=== PATIENT | female | born 1930 | race Caucasian/White ===

== ENCOUNTER 2021-06-23 16:01 | Inpatient (IN) ==
[2021-06-23 16:51] LABS: Basophils % 0.3 %; Hematocrit 38.1 % (35.3-44.9); Hemoglobin 13.2 g/dL (11.5-15.4); Immature Granulocytes % 0.5 % (0-4); Lymphocytes # 0.4 K/mcL (0.6-4.6); Mean Corpuscular HGB Conc 34.6 g/dL (31.6-35.5); Mean Corpuscular Hemoglobin 32.1 pg (28.0-33.3); Mean Corpuscular Volume 92.7 fL (83.0-100.0); Mean Platelet Volume 11.2 fL (9.4-12.4); Monocytes # 0.1 K/mcL (0.0-1.3); Monocytes % 3.3 %; Neutrophils # 3.5 K/mcL (1.6-8.9); Red Blood Count 4.11 M/mcL (3.82-4.97); Red Cell Distribution Width 11.8 % (11.5-14.5); Segmented Neutrophils % 86.9 %
[2021-06-23 17:06] LABS: Alanine Aminotransferase 46 Units/L (7-52); Albumin 3.1 g/dL (3.5-5.7); Albumin/Globulin Ratio 1.1 (1.1-2.2); Alkaline Phosphatase 36 Units/L (34-104); Aspartate Amino Transferase 82 Units/L (13-39); BUN/Creatinine Ratio 22 (6-26); Bilirubin,Total 0.4 mg/dL (0.3-1.0); Blood Urea Nitrogen 18 mg/dL (8-23); Calcium 7.8 mg/dL (8.6-10.3); Carbon Dioxide 23 mEq/L (23-29); Chloride 97 mEq/L (98-107); Globulin 2.7 g/dL (2.4-3.5); Glucose 119 mg/dL (70-105); Osmolality,Calculated 273 (280-300); Potassium 3.6 mEq/L (3.5-5.1); Sodium 130 mEq/L (136-145); Total Protein 5.8 g/dL (6.4-8.9); eGFR For African Americans > 60 (> 60); eGFR For Non-African Americans > 60 (> 60)
[2021-06-23 17:13] LABS: Platelet Count 96 K/mcL (140-400)
[2021-06-23 17:14] LABS: Platelet Estimate Slight Decrease (Normal)
[2021-06-23 17:22] LABS: Thyroid Stimulating Hormone 1.022 mcIU/mL (0.340-5.600)
[2021-06-23] MEDS: 0.9 % Sodium Chloride 1,000 ML IVC SCH (18:27)
[2021-06-23] MEDS ORDERED: 0.9 % Sodium Chloride 500 ML IVC ONE (18:44)
[2021-06-23] MEDS ORDERED: *HR* Enoxaparin 40 MG/0.4 ML SYRINGE SQ ONE (19:35)
[2021-06-23] MEDS ORDERED: Ondansetron 4 MG/2 ML VIAL IVP PRN (20:38)
[2021-06-23 20:54] LABS: INR 1.3; Prothrombin Time 14.9 Seconds (9.4-12.1)
[2021-06-23 20:56] LABS: Activated Partial Thrombo Time 27.6 Seconds (26.0-36.0)
[2021-06-24 00:53] LABS: BUN/Creatinine Ratio 24 (6-26); Blood Urea Nitrogen 15 mg/dL (8-23); Calcium 7.2 mg/dL (8.6-10.3); Carbon Dioxide 22 mEq/L (23-29); Chloride 102 mEq/L (98-107); Glucose 130 mg/dL (70-105); Osmolality,Calculated 275 (280-300); Potassium 3.6 mEq/L (3.5-5.1); Sodium 131 mEq/L (136-145); eGFR For African Americans > 60 (> 60); eGFR For Non-African Americans > 60 (> 60)
[2021-06-24] MEDS: 0.9 % Sodium Chloride 1,000 ML IVC SCH (04:23)
[2021-06-24 11:18] LABS: Hematocrit 33.3 % (35.3-44.9); Hemoglobin 11.4 g/dL (11.5-15.4); Immature Granulocytes % 0.8 % (0-4); Lymphocytes # 0.3 K/mcL (0.6-4.6); Lymphocytes % 13.4 %; Mean Corpuscular HGB Conc 34.2 g/dL (31.6-35.5); Mean Corpuscular Hemoglobin 31.9 pg (28.0-33.3); Mean Corpuscular Volume 93.3 fL (83.0-100.0); Mean Platelet Volume 10.9 fL (9.4-12.4); Monocytes # 0.2 K/mcL (0.0-1.3); Monocytes % 6.3 %; Red Blood Count 3.57 M/mcL (3.82-4.97); Red Cell Distribution Width 11.9 % (11.5-14.5); Segmented Neutrophils % 79.5 %; White Blood Count 2.5 K/mcL (4.3-11.1)
[2021-06-24 11:22] LABS: Platelet Count 91 K/mcL (140-400)
[2021-06-24 11:31] LABS: Alanine Aminotransferase 38 Units/L (7-52); Albumin 2.6 g/dL (3.5-5.7); Albumin/Globulin Ratio 1.1 (1.1-2.2); Alkaline Phosphatase 31 Units/L (34-104); Aspartate Amino Transferase 56 Units/L (13-39); BUN/Creatinine Ratio 24 (6-26); Bilirubin,Total 0.4 mg/dL (0.3-1.0); Blood Urea Nitrogen 15 mg/dL (8-23); Calcium 7.2 mg/dL (8.6-10.3); Carbon Dioxide 24 mEq/L (23-29); Chloride 107 mEq/L (98-107); Globulin 2.4 g/dL (2.4-3.5); Glucose 111 mg/dL (70-105); Osmolality,Calculated 286 (280-300); Potassium 3.9 mEq/L (3.5-5.1); Sodium 137 mEq/L (136-145); eGFR For African Americans > 60 (> 60); eGFR For Non-African Americans > 60 (> 60)
[2021-06-24 12:15] LABS: Bilirubin,Urine Negative (Negative); Blood,Urine Negative (Negative); Clarity,Urine Clear (Clear); Color,Urine Yellow (Yellow); Glucose,Urine (UA) Normal (Normal); Ketones,Urine Negative (Negative); Leukocyte Esterase,Urine Negative (Negative); Nitrite,Urine Negative (Negative); Protein,Urine 30 mg/dL (Neg-Trace); Specific Gravity,Urine 1.015 (1.010-1.025); Urobilinogen,Urine Normal (Normal)
[2021-06-24 12:23] LABS: Amphetamine Screen,Urine Negative ng/mL (Cutoff=1000); Barbiturate Screen,Urine Negative ng/mL (Cutoff=200); Benzodiazepines Screen,Urine Negative ng/mL (Cutoff=200); Cannabinoid Screen,Urine Negative ng/mL (Cutoff = 50); Cocaine Screen,Urine Negative ng/mL (Cutoff= 300); Opiate Screen,Urine Negative ng/mL (Cutoff=300); Phencyclidine Screen,Urine Negative ng/mL (Cutoff=25)
[2021-06-24 12:27] LABS: WBC,Urine 0-3 per hpf (0-3)
[2021-06-24 18:12] LABS: Ferritin 589 ng/mL (10-120)
[2021-06-24] MEDS ORDERED: *HR* Enoxaparin 40 MG/0.4 ML SYRINGE SQ ONE (22:00)
[2021-06-25 07:04] LABS: Hematocrit 35.6 % (35.3-44.9); Hemoglobin 12.2 g/dL (11.5-15.4); Immature Granulocytes % 0.7 % (0-4); Lymphocytes # 0.3 K/mcL (0.6-4.6); Lymphocytes % 7.5 %; Mean Corpuscular HGB Conc 34.3 g/dL (31.6-35.5); Mean Corpuscular Volume 93.4 fL (83.0-100.0); Mean Platelet Volume 10.9 fL (9.4-12.4); Monocytes # 0.1 K/mcL (0.0-1.3); Monocytes % 1.8 %; Neutrophils # 4.1 K/mcL (1.6-8.9); Platelet Count 118 K/mcL (140-400); Red Blood Count 3.81 M/mcL (3.82-4.97); White Blood Count 4.5 K/mcL (4.3-11.1)
[2021-06-25 07:12] VITALS: TEMP 97.7
[2021-06-25 07:16] LABS: BUN/Creatinine Ratio 25 (6-26); Blood Urea Nitrogen 15 mg/dL (8-23); Calcium 7.8 mg/dL (8.6-10.3); Carbon Dioxide 24 mEq/L (23-29); Chloride 107 mEq/L (98-107); Glucose 137 mg/dL (70-105); Osmolality,Calculated 287 (280-300); Potassium 4.3 mEq/L (3.5-5.1); Sodium 137 mEq/L (136-145); eGFR For African Americans > 60 (> 60); eGFR For Non-African Americans > 60 (> 60)
[2021-06-25] MEDS ORDERED: *HR* Enoxaparin 40 MG/0.4 ML SYRINGE SQ ONE (09:48)
[2021-06-25 11:39] VITALS: BP 96/59; PULSE 93; RESP 15; O2SAT 93
== END 2021-06-25 15:50 | disposition home or self-care (01) | DRG 178 ==
LOC: EMEROOGRE 16:01 → INPGRE 16:01
PROVIDERS: ADMIT Family Medicine; ATTEND Family Medicine